=== PATIENT | male | born 1980 | race Caucasian/White ===

== ENCOUNTER 2017-09-21 10:32 | Emergency (ER) | payer OTHER ==
[~2017-09-21] VITALS: Ht 193 cm; Wt 72.0 kg
[~2017-09-21 10:32] MED LIST: AMOX875 PO; DIFL500T PO; Z.0.NO CURRENT MEDS
[2017-09-21 10:34] VITALS: BP 128/76; PULSE 64; RESP 16; TEMP 97.7; O2SAT 98
[2017-09-21] MEDS ORDERED: ROBA500T PO (10:52)
--- NOTE | 2017-09-21 10:52 | PD ---
HPI Chief Complaint: Pain: Acute or Chronic Time Seen by Provider: 10:44 Travel History International Travel<30 days: No Contact w/Intl Traveler<30days: No Traveled to known affect area: No History of Present Illness HPI 37-year-old male presents to emergency department complaining of left upper shoulder pain after work yesterday afternoon. Patient states that he got off work and developed what he feels are muscle spasms in the shoulder and has been unable to relieve his symptoms. Patient states that he has been trying to stretch the shoulder but this has not helped. Patient is a full range of motion without numbness or tingling of the extremity. Patient states that this occurred 4 months ago and he was able to stretch the shoulder without issue. Patient denies chronic medical problems or medication use. Denies chest pain, shortness of breath. PFSH Past Medical History Diminished Hearing: No Musculoskeletal: Yes (CHRONIC BACK PAIN) Immunizations Current: Yes Social History Alcohol Use: Yes (OCCASSIONAL) Tobacco Use: Yes (1 PPD) Substance Use: Yes (MARIJUANA) Allergies-Medications (Allergen,Severity, Reaction): Coded Allergies: No Known Allergies (Verified Adverse Reaction, Unknown, 09/21/17) Reported Meds & Prescriptions Reported Meds & Active Scripts Active Robaxin (Methocarbamol) 500 Mg Tab 500 Mg PO TID 3 Days Review of Systems Except as stated in HPI: all other systems reviewed are Neg Physical Exam Narrative GENERAL: Well-developed well-nourished in no apparent distress SKIN: Focused skin assessment warm/dry. HEAD: Atraumatic. Normocephalic. NECK: Supple, nontender. No meningeal signs. Trachea midline. No JVD or lymphadenopathy. CARDIOVASCULAR: Regular rate and rhythm. No murmur appreciated. RESPIRATORY: No accessory muscle use. Clear to auscultation. Breath sounds equal bilaterally. MUSCULOSKELETAL: No obvious deformities. No clubbing. No cyanosis. No edema. Left shoulder- upper shoulder with obvious spasms, pain reproducible BACK: No CVA tenderness. No rash. No point tenderness on palpation of the spine. NEUROLOGICAL: Awake and alert. No obvious cranial nerve deficits. Motor grossly within normal limits. Normal speech. PSYCHIATRIC: Appropriate mood and affect; insight and judgment normal. Data Data Last Documented VS Vital Signs Date Time Temp Pulse Resp B/P (MAP) Pulse Ox O2 Delivery O2 Flow Rate FiO2 09/21/17 10:34 97.7 64 16 128/76 (35) 98 Orders Orders Orphenadrine Inj (Norflex Inj) (09/21/17 11:00) Ed Discharge Order (09/21/17 10:54) [facility] Medical Decision Making Medical Screen Exam Complete: Yes Emergency Medical Condition: Yes Differential Diagnosis Left shoulder Muscle spasm versus contusion versus rotator cuff injury versus shoulder strain Narrative Course 37-year-old male presents to emergency department complaining of left upper shoulder pain after work yesterday afternoon. Patient states that he got off work and developed what he feels are muscle spasms in the shoulder throughout the day and has been unable to relieve his symptoms. Patient states that he has been trying to stretch the shoulder but this has not helped. Patient is a full range of motion without numbness or tingling of the extremity. Patient states that this occurred 4 months ago and he was able to stretch the shoulder without issue. Patient denies chronic medical problems or medication use. Denies chest pain, shortness of breath. Vital signs stable Physical exam consistent with muscle spasm Norflex administer the emergency department Robaxin for use at home. Advised to continue stretches. Return to the emergency department for worsening symptoms. Diagnosis Primary Impression: Muscle spasm Referrals: [facility] Additional Instructions: Use muscle relaxers sparingly. Use caution with muscle relaxers as they may cause drowsiness. He may use Tylenol or Motrin per package instructions for your pain. Continue to stretch your shoulder Scripts Methocarbamol (Robaxin) 500 Mg Tab 500 MG PO TID for Muscle Spasm for 3 Days, TAB 0 Refills Prov: Mathew Portillo MD 09/21/17 Disposition: 01 DISCHARGE HOME Condition: Stable Shannan Don Sep 21, 2017 10:51
[2017-09-21] MEDS ORDERED: ORPHENADRINE INJ 60 MG/2 ML AMP IM ONE (11:00)
== END 2017-09-21 11:49 | disposition home or self-care (01) ==
LOC: PHEFT 10:32
DX: M62.838 Other muscle spasm (principal); M54.9 Dorsalgia, unspecified; G89.29 Other chronic pain; Z72.0 Tobacco use
CPT/HCPCS: 96372; 99284; J2360